=== PATIENT | male | born 1940 | race Caucasian/White ===

== ENCOUNTER 2017-01-08 23:24 | Observation (INO) | payer BC ==
[~2017-01-08] VITALS: Ht 175.3 cm; Wt 90.9 kg
[2017-01-08 23:31] VITALS: Ht 175.3 cm; Wt 90.9 kg
--- NOTE | 2017-01-08 23:41 | ERA ---
ER Documentation Chief Complaint Date/Time DATE: 01/08/17 TIME: 23:37 Chief Complaint BIBA RA 81, s/p fall, left head lac,hx CVA HPI Patient is a 76-year-old male who presents with sudden onset, constant, moderate confusion for an unknown period of time. The patient had a fall at home with trauma to his head, and called 911. He was found on the floor with a laceration to his scalp. The patient was confused as to what happened or how long he had been on the floor for. The patient denies loss of consciousness, and states that he remembers falling, but cannot state why he fell. The patient states that he was in a hospital this morning for unknown reason. He does not recall which hospital. He states that he recently had a stroke, but cannot state what kind of deficit he had, where he was treated, or how long ago this occurred. He currently complains of headache and dizziness. He denies chest pain, shortness of breath, vomiting, fever. ROS All systems reviewed and are negative except as per history of present illness. Medications Home Meds Unable to Obtain Active Prescriptions or Reported Meds Allergies Allergies: Coded Allergies: No Known Allergy (Unverified , 01/08/17) PMhx/Soc Past medical history: Diabetes, hypertension, CVA Past surgical history: None Social history: Denies tobacco or alcohol. FmHx Family History: No coronary disease, No diabetes Physical Exam Vitals Vital Signs Date Time Temp Pulse Resp B/P Pulse Ox O2 Delivery O2 Flow Rate FiO2 01/08/17 23:31 99.2 86 18 106/62 95 Physical Exam Const: ` Alert, no acute distress Head: 9 cm right parietal scalp laceration Eyes: Normal Conjunctiva, no pallor, no icterus, no nystagmus ENT: Normal External Ears, Nose and Mouth. No facial bony tenderness. Neck: Full range of motion..~ No meningismus. No midline tenderness. Resp: Clear to auscultation bilaterally, no wheezes, no rales Cardio: Regular rate and rhythm, no murmurs Abd: Soft, non tender, non distended. No rebound, no guarding Skin: No petechiae or rashes Back: No midline or flank tenderness Ext: No cyanosis, or edema Neur: Awake and alert, disoriented to time and place, cranial nerves II through XII intact bilaterally, strength and sensation full in 4 extremities. No pronator drift, no dysmetria Psych: Normal Mood and Affect Result Diagram: 01/08/17 2352 01/08/17 2352 Results 24 hrs Laboratory Tests Test 01/08/17 23:52 White Blood Count 9.310^3/ul Red Blood Count 4.5410^6/ul Hemoglobin 13.7g/dl Hematocrit 40.8% Mean Corpuscular Volume 89.9fl Mean Corpuscular Hemoglobin 30.2pg Mean Corpuscular Hemoglobin Concent 33.6g/dl Red Cell Distribution Width 12.3% Platelet Count 05755^3/UL Mean Platelet Volume 10.7fl Neutrophils % 72.4% Lymphocytes % 16.6% Monocytes % 8.7% Eosinophils % 1.5% Basophils % 0.3% Nucleated Red Blood Cells % 0.0/100WBC Neutrophils # 6.810^3/ul Lymphocytes # 1.610^3/ul Monocytes # 0.810^3/ul Eosinophils # 0.110^3/ul Basophils # 0.010^3/ul Nucleated Red Blood Cells # 0.010^3/ul Prothrombin Time 12.7Sec Prothrombin Time Ratio 1.0 INR International Normalized Ratio 0.95 Activated Partial Thromboplast Time 24.8Sec Sodium Level 143mmol/L Potassium Level 4.0mmol/L Chloride Level 109mmol/L Carbon Dioxide Level 22mmol/L Anion Gap 16 Blood Urea Nitrogen 34mg/dl Creatinine 1.34mg/dl Glucose Level 126mg/dl Calcium Level 10.0mg/dl Total Bilirubin 0.3mg/dl Direct Bilirubin 0.00mg/dl Indirect Bilirubin 0.3mg/dl Aspartate Amino Transf (AST/SGOT) 26IU/L Alanine Aminotransferase (ALT/SGPT) 32IU/L Alkaline Phosphatase 38IU/L Ammonia < 9umol/l Troponin I < 0.012ng/ml Total Protein 6.6g/dl Albumin 4.6g/dl Globulin 2.00g/dl Albumin/Globulin Ratio 2.30 Ethyl Alcohol Level < 10.0mg/dl Current Medications Medications (Trade) Dose Ordered Sig/See Route PRN Reason Start Time Stop Time Status Last Admin Dose Admin Diphtheria/ Tetanus/Acell Pertussis (Adacel) 0.5 ml ONCE ONCE IM* 01/09/17 00:00 01/09/17 00:01 DC 01/09/17 00:27 Lidocaine/ Epinephrine 20 ml 20 ml ONCE ONCE INJ 01/09/17 02:00 01/09/17 02:01 DC Lidocaine HCl/ Dextrose 500 ml @ 15 mls/hr Q24H IV 01/09/17 02:00 Sodium Chloride (NS) 1,000 ml @ 60 mls/hr [id number] IV 01/09/17 02:11 01/09/17 06:06 Procedures/MDM EKG read by me: Time 0020, rate 75 Rhythm: Normal sinus [place]: Normal Intervals: Normal ST-T waves: no ischemic changes Ectopy: No Q-waves: No Impression: No evidence of ischemia or arrhythmia Laceration Repair by me: Anesthesia: 1% lidocaine locally Location: Right parietal scalp Foreign body: None detected after copious irrigation and exploration Technique: Kostas Complexity: No subcutaneous sutures/mucosal repair/edge excision Post Closure Length: 9 cm Patient's bleeding was easily controlled in the department and there is no indication of anemia. No evidence of foreign body. Patient is appropriate for outpatient follow up. 48 hour wound check. Scar minimization instructions given. MDM: Patient is a 76-year-old male who had a fall at home of unknown mechanism. He sustained a scalp laceration which was repaired with kostas. The patient is disoriented in the ER, but has no focal sensory or motor deficit. The patient reports that he has been in the hospital for the last 3 days, but cannot state which hospital he was in. He states that he was diagnosed with a stroke. Head CT shows an old basal ganglia infarct, but no acute changes. The onset of the patient's disorientation is unclear. MRI was ordered to assess for acute or recent stroke, and the patient will be admitted for further workup. It would be helpful to obtain outside hospital records to find out more about the patient's recent medical history, but I cannot do so at this time due to inability of the patient to provide the name of the hospital. The patient also states that he has no friends or family that may be aware of his recent history. He does state that he has a trial lawyer who could provide this information. The patient did not want to be admitted to the hospital and requested to be discharged home. I assessed him for capacity, and he did not have capacity for medical decision making or self-care. The patient was not able to urinate, and refused Valencia catheter. He also refused aspirin. UA and urine tox screen were ordered, and can be completed once the patient urinates. Departure Diagnosis: Primary Impression: Altered mental status Qualified Code: R41.0 - Disorientation Additional Impression: Scalp laceration Qualified Code: S01.01XA - Scalp laceration, initial encounter Condition: Stable SUKHDEV KOEHLER MD Jan 08, 2017 23:41
[2017-01-09] MEDS ORDERED: DIPHTH/TET/ACEL PERTUSS (ADULT) 0.5 ML VIAL IM* ONE
[2017-01-09 00:22] LABS: ADD SCAN DIFF NO; BASOPHILS % 0.3 % (0.0-2.0); EOSINOPHILS # 0.1 10^3/ul (0.0-0.5); EOSINOPHILS % 1.5 % (0.0-7.0); HEMATOCRIT 40.8 % (42.0-52.0); HEMOGLOBIN 13.7 g/dl (14.0-18.0); LYMPHOCYTES # 1.6 10^3/ul (0.8-2.9); LYMPHOCYTES % 16.6 % (15.0-51.0); MEAN CORPUSCULAR HEMOGLOBIN 30.2 pg (29.0-33.0); MEAN CORPUSCULAR HGB CONC 33.6 g/dl (32.0-37.0); MEAN CORPUSCULAR VOLUME 89.9 fl (82.0-101.0); MEAN PLATELET VOLUME 10.7 fl (7.4-10.4); MONOCYTE # 0.8 10^3/ul (0.3-0.9); MONOCYTES % 8.7 % (0.0-11.0); NEUTROPHIL # 6.8 10^3/ul (1.6-7.5); NEUTROPHILS % 72.4 % (39.0-77.0); PLATELET COUNT 209 10^3/UL (140-415); RED BLOOD COUNT 4.54 10^6/ul (4.70-6.10); RED CELL DISTRIBUTION WIDTH 12.3 % (11.5-14.5); WHITE BLOOD COUNT 9.3 10^3/ul (4.8-10.8)
[2017-01-09 00:41] LABS: ALANINE AMINOTRANSFERASE 32 IU/L (13-69); ALBUMIN 4.6 g/dl (3.3-4.9); ALKALINE PHOSPHATASE 38 IU/L (42-121); ANION GAP 16 (8-16); ASPARTATE AMINO TRANSFERASE 26 IU/L (15-46); BILIRUBIN,INDIRECT 0.3 mg/dl (0-1.1); BILIRUBIN,TOTAL 0.3 mg/dl (0.2-1.3); BLOOD UREA NITROGEN 34 mg/dl (7-20); CARBON DIOXIDE 22 mmol/L (21-31); CHLORIDE 109 mmol/L (97-110); CREATININE 1.34 mg/dl (0.61-1.24); GLUCOSE 126 mg/dl (70-220); SODIUM 143 mmol/L (135-144); TOTAL PROTEIN 6.6 g/dl (6.1-8.1)
[2017-01-09 00:43] LABS: ETHANOL < 10.0 mg/dl
[2017-01-09 00:45] LABS: INR 0.95; PROTIME 12.7 Sec (12.2-14.2)
[2017-01-09 00:46] LABS: PARTIAL THROMBOPLASTIN TIME 24.8 Sec (25.0-35.0)
--- NOTE | 2017-01-09 00:46 | RADRPT ---
PROCEDURE: XR Chest. CLINICAL INDICATION: Altered mental status TECHNIQUE: Single AP portable chest COMPARISON: None. FINDINGS: The cardiomediastinal silhouette is within normal limits of size. Atherosclerotic calcification of t he aorta. The lungs are clear without pleural effusion or focal consolidation. No pneumothorax. The osseous structures and soft tissues are unremarkable. IMPRESSION: 1. No evidence for active cardiopulmonary disease. RPTAT:AAJJ Roly Turner Physician Date Time Electronically viewed and signed by Roly Turner Physician on 01/09/2017 00:46 BRENNON/
--- NOTE | 2017-01-09 00:49 | RADRPT ---
PROCEDURE: CT Brain without contrast. CLINICAL INDICATION: Head trauma and headache. History of CVA. TECHNIQUE: A multiplanar CT of the brain was performed on a CT scanner utilizing axial imaging fro m the skull base through the vertex without IV contrast. The CTDIvol is 43.16 mGy and the DLP is 72 0.23 mGycm. One or more of the following dose reduction techniques were utilized: Automated expos ure control, adjustment of the mA and/or kV according to patient size, use of iterative reconstructi on technique. COMPARISON: None FINDINGS: No evidence of intracranial hemorrhage or abnormal extra-axial fluid collection. Mild periventricular and subcortical white matter low attenuation compatible with sequelae of chroni c microvascular ischemic injury. Remote lacunar infarct in the left basal ganglia. The brain parenc hyma is otherwise normal attenuation and morphology with preservation of araiza white differentiation. The ventricles and subarachnoid spaces are prominent compatible with mild age appropriate volume lo ss. Opacification of the right maxillary sinus compatible with chronic inflammatory change. The basal cisterns, posterior fossa contents, brainstem, craniocervical junction, orbits, pituitary axis, paranasal sinuses, mastoid air cells, and calvarium are unremarkable. IMPRESSION: 1. No intracranial hemorrhage or acute intracranial abnormality. 2. Mild chronic microvascular ischemic changes and age related volume loss. 3. Remote left basal ganglia lacunar infarct. 4. Early ischemic injury may be occult to CT imaging and diffusion weighted MRI may be considered a s clinically warranted. RPTAT:AAJJ Physician Jennifer Date Time Electronically viewed and signed by Physician Jennifer on 01/09/2017 00:49 BRENNON/
[2017-01-09 00:52] LABS: TROPONIN-I < 0.012 ng/ml (0.00-0.12)
[2017-01-09] MEDS ORDERED: LIDOCAINE 2 GM/D5W 500 ML IV SCH (02:00)
[2017-01-09] MEDS ORDERED: LIDOCAINE 2%/EPI MPF (SDV) 20 ML VIAL INJ ONE (02:00)
[2017-01-09] MEDS ORDERED: ONDANSETRON 4 MG INJ IV PRN ×2 (02:30)
[2017-01-09] MEDS ORDERED: NACL 0.9% 3 ML SYG IV SCH (02:30)
[2017-01-09] MEDS ORDERED: ACETAMINOPHEN 325 MG TAB PO PRN ×2 (02:30)
[2017-01-09] MEDS: SOD CHLORIDE 0.9% 1,000 ML IV SCH ×2 (03:22→06:06)
[2017-01-09] MEDS ORDERED: ASPIRIN 81 MG TAB PO ONE (03:30)
--- NOTE | 2017-01-09 05:32 | HP ---
Date/Time of Note Date/Time of Note DATE: 01/09/17 TIME: 05:29 Assessment/Plan VTE Prophylaxis VTE Prophylaxis Intervention: SCD's Assessment/Plan Chief Complaint/Hosp Course This is a 76-year-old male being admitted to the [facility] floor for: #1 altered mental status: Neurologic versus metabolic. At the current time patient does not recall certain events over the last couple of days as well as not recalling where he was hospitalized. Patient does apparently have a history of a stroke. CT scan did show remote left basal ganglia lacunar infarct , Early ischemic injury may be occult to CT imaging and diffusion weighted MRI was recommended. MRI of the brain was will be ordered. Neuro checks q4. Will order lab workup vitamin B12 and folate, HIV and RPR, urine drug screen, as well as bilateral carotid Dopplers. PT evaluation. Will also order an echocardiogram. We will also consult neurology. #2 diabetes: Patient denies that he uses any insulin. Will order hemoglobin A1c. Patient on diabetic diet. #3 hypertension: We will continue to monitor, we will have any records of his home medication at this time we will try to obtain records. #4 history of CVA: Again will have any records at this time will attempt to obtain records from any previous hospital admissions at other facilities. #5 DVT and GI prophylaxis: SCDs, Protonix Further treatment strategy will be implemented as per the clinical course. We will try to obtain medical records from outside facilities if possible and try to contact any family members to help us further find any of his past medical history. And help find his medication list. Problems: HPI/ROS Admit Date/Time Admit Date/Time Jan 09, 2017 at 02:11 Hx of Present Illness chief complaint: fall This is a 76-year-old male who presents with sudden onset, constant, moderate confusion for an unknown period of time. The patient had a fall at home with trauma to his head, and called 911. He was found on the floor with a laceration to his scalp. The patient was confused as to what happened or how long he had been on the floor for. The patient denies loss of consciousness, and states that he remembers falling, but cannot state why he fell. The patient states that he was in a hospital yesterday morning for an unknown reason. He does not recall which hospital. He states that he recently had a stroke, but cannot state what kind of deficit he had, where he was treated, or how long ago this occurred. H He denies chest pain, shortness of breath, vomiting, fever. While in the ER he complained of headache and dizziness however upon my examination now it has resolved. Patient is slow to answer questions. He does appear to be forgetful. allergies: nkda meds: unknown ROS Const: As per HPI Eyes : No pain discharge or redness or change in visual acuity ENT: No pain, sore throat, congestion, congestion, dysphagia or discharge Respiratory: No shortness of breath, cough, sputum, wheezing, or pleuritic pain Cardiovascular: No chest pain, palpitation, PND, or edema GI : no change in appetite, abdominal pain, nausea, vomiting, diarrhea, constipation, or change in the color his stool Genitourinary: No dysuria, hematuria, flank pain , discharge or CVA tenderness Musculoskeletal: As per HPI Skin: No rash, bruising or hives Neuro: As per HPI Endocrine: No polyuria, polydipsia, temperature intolerance Psych: No hallucination, depression, anxiety or suicidal ideation PMH/Family/Social Past Medical History diabetes, hta, cva Past Surgical History Past Surgical Hx: no surgical history Family History Significant Family History: no pertinent family hx Social History Alcohol Use: none Smoking Status: Never smoker Exam/Review of Systems Vital Signs Vitals Vital Signs Date Time Temp Pulse Resp B/P Pulse Ox O2 Delivery O2 Flow Rate FiO2 01/09/17 04:22 87 17 169/85 98 Room Air 01/08/17 23:31 99.2 Exam Exam General: Patient is well-developed well-nourished male laying in bed in no acute distress HEENT: Right parietal scalp laceration status post repair, EOMI Neck: Supple with full range of motion. No rigidity or meningismus Chest: Nontender Lungs: Clear to auscultation bilaterally no crackles rales or wheezing Heart: Normal S1-S2, Regular rhythm and rate. Abdomen: Soft , nontender, nondistended , bowel sounds are present. No guarding no rebound tenderness , No masses or organomegaly. No costovertebral temporal angle mass Extremities: Normal to inspection, no edema no cyanosis Neurologic: Patient is alert and oriented 2, one answering questions it appears that the patient has to pause and think for a minute even for easy questions, he does appear to be forgetful regarding certain things as well such as how he fell. He is able to follow commands appropriately. Cranial nerves II through XII intact, no focal deficits noted. Skin: Mild bruising and cuts of bilateral upper extremity Additional Comments PROCEDURE: CT Brain without contrast. CLINICAL INDICATION: Head trauma and headache. History of CVA. TECHNIQUE: A multiplanar CT of the brain was performed on a CT scanner utilizing axial imaging from the skull base through the vertex without IV contrast. The CTDIvol is 43.16 mGy and the DLP is 720.23 mGycm. One or more of the following dose reduction techniques were utilized: Automated exposure control, adjustment of the mA and/or kV according to patient size, use of iterative reconstruction technique. COMPARISON: None FINDINGS: No evidence of intracranial hemorrhage or abnormal extra-axial fluid collection. Mild periventricular and subcortical white matter low attenuation compatible with sequelae of chronic microvascular ischemic injury. Remote lacunar infarct in the left basal ganglia. The brain parenchyma is otherwise normal attenuation and morphology with preservation of araiza white differentiation. The ventricles and subarachnoid spaces are prominent compatible with mild age appropriate volume loss. Opacification of the right maxillary sinus compatible with chronic inflammatory change. The basal cisterns, posterior fossa contents, brainstem, craniocervical junction , orbits, pituitary axis, paranasal sinuses, mastoid air cells, and calvarium are unremarkable. IMPRESSION: 1. No intracranial hemorrhage or acute intracranial abnormality. 2. Mild chronic microvascular ischemic changes and age related volume loss. 3. Remote left basal ganglia lacunar infarct. 4. Early ischemic injury may be occult to CT imaging and diffusion weighted MRI may be considered as clinically warranted. RPTAT:AAJJ Physician Jennifer Date Time Electronically viewed and signed by Physician Jennifer on 01/09/2017 00:49 PROCEDURE: XR Chest. CLINICAL INDICATION: Altered mental status TECHNIQUE: Single AP portable chest COMPARISON: None. FINDINGS: The cardiomediastinal silhouette is within normal limits of size. Atherosclerotic calcification of the aorta. The lungs are clear without pleural effusion or focal consolidation. No pneumothorax. The osseous structures and soft tissues are unremarkable. IMPRESSION: 1. No evidence for active cardiopulmonary disease. RPTAT:AAJJ Roly Turner Physician Date Time Electronically viewed and signed by Roly Turner Physician on 01/09/2017 00:46 BRENNON/ Labs Result Diagram: 01/08/17 2352 01/08/17 2352 Medications Medications Current Medications Lidocaine HCl/ Dextrose 500 ml @ 15 mls/hr Q24H IV ; Start 01/09/17 at 02:00 Sodium Chloride (NS) 1,000 ml @ 60 mls/hr [id number] IV Last administered on 01/09t 03:22; Admin Dose 60 MLS/HR; Start 01/09/17 at 02:11 Ondansetron HCl (Zofran Inj) 4 mg Q6H PRN IV NAUSEA AND/OR VOMITING; Start at 02:30 Acetaminophen (Tylenol Tab) 650 mg Q6H PRN PO PAIN LEVEL 1-3 OR FEVER; Start at 02:30 Pantoprazole (Protonix Iv) 40 mg DAILY@06 IV ; Start 01/09/17 at 06:00 LAUREL BURT Jan 09, 2017 05:32
[2017-01-09] MEDS: PANTOPRAZOLE 40 MG INJ IV SCH (06:00)
[2017-01-09] MEDS ORDERED: LORAZEPAM 2 MG INJ IV ONE (07:30)
[2017-01-09 07:47] LABS: TROPONIN-I 0.018 ng/ml (0.00-0.12)
[2017-01-09 07:52] LABS: CK-MB 1.91 ng/ml (0.0-2.4)
[2017-01-09 07:56] VITALS: BP 150/75; RESP 18
[2017-01-09 08:42] LABS: FOLATE 9.4 ng/ml (2.8-20.0)
--- NOTE | 2017-01-09 09:57 | RADRPT ---
PROCEDURE: MR Brain without contrast. CLINICAL INDICATION: Altered mental status TECHNIQUE: An MRI of the brain was performed on a 1.5 daron scanner utilizing the following sequen doris: Sagittal T1 weighted, axial T2 weighted, axial FLAIR, coronal GRE, and axial diffusion weighted with ADC mapping. COMPARISON: 01/09/2017 CT brain. FINDINGS: Focus of restricted diffusion in the right posterior central gyrus of the right parietal lobe compat ible with acute / early subacute ischemic infarction. There is no evidence of intracranial hemorrha ge, mass effect, or midline shift. No extra-axial fluid collections are seen. No hypointense signal abnormalities are seen on the GRE images to suggest the presence of blood degr adation products. Scattered nonspecific T2 signal hyperintensity foci in the subcortical and periven tricular white matter compatible with sequelae of minimal chronic microvascular ischemic injury. Rem ote lacunar infarct in the right cerebellar hemisphere and left and left basal ganglia. The brain parenchyma is otherwise normal in signal intensity and morphology with preservation of gra y white differentiation . The ventricles and subarachnoid spaces are prominent moderate central cer ebral and cerebellar volume loss. Opacification of the right maxillary sinus. The posterior fossa contents, brainstem, seventh - eighth cranial nerve complexes, pituitary axis, o rbits, paranasal sinuses, and mastoid air cells are unremarkable. Normal flow voids are visible in the proximal intracranial arteries and dural sinuses, indicating pa tency. IMPRESSION: 1. Restricted diffusion compatible with acute / early subacute ischemic infarct in the right parieta l lobe. No evidence of surrounding edema, mass effect, or shift. No hemorrhagic transformation. 2. Mild chronic microvascular ischemic changes. Moderate central cerebral and cerebellar volume los s. 3. Remote lacunar infarcts in the right cerebellar hemisphere and left basal ganglia. RPTAT:AAJJ Physician Jennifer Date Time Electronically viewed and signed by Physician Jennifer on 01/09/2017 09:57 BRENNON/
--- NOTE | 2017-01-09 10:34 | RADRPT ---
PROCEDURE: US Carotids. CLINICAL INDICATION: altered mental status, confusion TECHNIQUE: Multiple sonographic of the carotid bifurcation region and vertebral arteries were obta ined utilizing araiza scale, duplex and color-flow imaging. The images were reviewed on a PACS worksta tion. COMPARISON: None FINDINGS: Evaluation of the right carotid bifurcation region reveals calcific atherosclerotic disease. Evaluation of the left carotid bifurcation region reveals calcific atherosclerotic disease. There is antegrade flow within the vertebral arteries bilaterally. RIGHT CAROTID MEASUREMENTS: Common Carotid Suwwwb963.8 (cm/sec) Internal Carotid Artery - pxybndhi17.6 (cm/sec) Internal Carotid Artery - mid50.2 (cm/sec) Internal Carotid Artery - eiqodt42.4 (cm/sec) Internal Carotid/Common Carotid0.82 LEFT CAROTID MEASUREMENTS: Common Carotid Artery 72.6 (cm/sec) Internal Carotid Artery - proximal 51.6 (cm/sec) Internal Carotid Artery - mid 59.7(cm/sec) Internal Carotid Artery - distal 59.1(cm/sec) Internal Carotid/Common Carotid 0.9 IMPRESSION: 1. No evidence for hemodynamically significant carotid artery stenosis - validated velocity measure ments with angiographic measurements, velocity criteria are extrapolated from diameter data as defin ed by the Society of Radiologists in Ultrasound Consensus Conference Radiology 2003; 229; 340 - 346. This study does indirectly reference the measurement of the distal ICA diameter as the denominator for stenosis measurement. 2. Normal antegrade flow in the vertebral arteries bilaterally. RPTAT: HJES .Sumanth Smart MD, MD Date Time Electronically viewed and signed by .Sumanth Smart MD, MD on 01/09/2017 10:34 .S/
[2017-01-09] MEDS: METOPROLOL 25 MG TAB PO SCH ×2 (13:45→21:36)
[2017-01-09 15:17] LABS: TROPONIN-I 0.019 ng/ml (0.00-0.12)
[2017-01-09 15:45] LABS: CK-MB 1.07 ng/ml (0.0-2.4)
[2017-01-09 19:12] VITALS: BP 159/76; RESP 18
--- NOTE | 2017-01-09 20:46 | QN ---
Documentation Comment Patient seen and evaluated. Spoke with patient himself, spoke with patient's power of district attorney and friend, and also spoke with [facility] physician who took care of the patient [facility] up until yesterday. Apparently patient was seen and managed at [facility] for subacute stroke, and he had refused half-way placement at that time and chosen to return to his own home with home health therapy. However on the night of his discharge is when he had a fall was brought to our emergency room by paramedics. His power of district attorney and friend notes that the patient's memory has been failing, and is concerned that his house is not safe for him anymore. Patient is now amenable to half-way placement. Patient is oriented to self, place and person but does have tangential and confused speech intermittently. For instance he says [employer] officers have moved into his home, and I have verified with his power of district attorney that this is not true. 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 He may need board and care versus assisted living afterwards. SANJU DEVRIES. Jan 09, 2017 18:51
[2017-01-10] MEDS: SOD CHLORIDE 0.9% 1,000 ML IV SCH (04:47)
[2017-01-10] MEDS: PANTOPRAZOLE 40 MG INJ IV SCH (05:34)
[2017-01-10 06:34] LABS: ADD SCAN DIFF NO
[2017-01-10 06:52] LABS: BASOPHILS % 0.5 % (0.0-2.0); EOSINOPHILS # 0.1 10^3/ul (0.0-0.5); EOSINOPHILS % 2.1 % (0.0-7.0); HEMATOCRIT 37.6 % (42.0-52.0); HEMOGLOBIN 12.6 g/dl (14.0-18.0); LYMPHOCYTES # 1.6 10^3/ul (0.8-2.9); LYMPHOCYTES % 27.9 % (15.0-51.0); MEAN CORPUSCULAR HEMOGLOBIN 30.2 pg (29.0-33.0); MEAN CORPUSCULAR HGB CONC 33.5 g/dl (32.0-37.0); MEAN CORPUSCULAR VOLUME 90.2 fl (82.0-101.0); MEAN PLATELET VOLUME 11.1 fl (7.4-10.4); MONOCYTE # 0.6 10^3/ul (0.3-0.9); MONOCYTES % 9.7 % (0.0-11.0); NEUTROPHIL # 3.5 10^3/ul (1.6-7.5); NEUTROPHILS % 59.3 % (39.0-77.0); PLATELET COUNT 193 10^3/UL (140-415); RED BLOOD COUNT 4.17 10^6/ul (4.70-6.10); WHITE BLOOD COUNT 5.9 10^3/ul (4.8-10.8)
[2017-01-10 06:58] LABS: ALBUMIN 4.3 g/dl (3.3-4.9); ALBUMIN/GLOBULIN RATIO 1.95; BILIRUBIN,INDIRECT 0.5 mg/dl (0-1.1); BILIRUBIN,TOTAL 0.5 mg/dl (0.2-1.3); CALCIUM 8.9 mg/dl (8.4-10.2); CREATININE 1.06 mg/dl (0.61-1.24); TOTAL PROTEIN 6.5 g/dl (6.1-8.1)
[2017-01-10 09:22] VITALS: BP 168/77; RESP 18
[2017-01-10] MEDS: METOPROLOL 25 MG TAB PO SCH (09:24)
--- NOTE | 2017-01-10 10:23 | PN ---
Date/Time of Note Date/Time of Note DATE: 01/10/17 TIME: 10:17 Assessment/Plan VTE Prophylaxis VTE Prophylaxis Intervention: LMWH Lines/Catheters IV Catheter Type (from [facility]): Saline Lock Urinary Cath still in place: No Assessment/Plan Assessment/Plan 76 yo M with 1. Subacute stroke with history of multiple strokes in the past 2. Multi-infarct dementia 3. Status post fall with laceration to head 4. Mild rhabdomyolysis Plan: Patient was recently discharged from [facility] after being diagnosed with stroke and worked up. He had however refused usp placement at that time, so he was discharged home with home health when he went and sustained a fall. He was brought here by paramedics. I have spoken in detail with patient's power of senior trial attorney and friend, I also spoke with the patient. Will continue inpatient supportive care and rehab at this time; however the patient is no longer able to reside by himself. He will need residential facility placement. Case management working on this. Consider low dose seroquel if patient becomes agitated. Wean sitter Subjective 24 Hr Interval Summary Free Text/Dictation patient seen no new issues Nursing reports no acute overnight events. Exam/Review of Systems Vital Signs Vitals Vital Signs Date Time Temp Pulse Resp B/P Pulse Ox O2 Delivery O2 Flow Rate FiO2 01/10/17 09:22 97.6 79 18 168/77 97 01/09/17 04:22 Room Air Intake and Output 01/09/17 01/09/17 01/10/17 15:00 23:00 07:00 Intake Total 450 ml 1070 ml Balance 450 ml 1070 ml Exam General: Patient is well-developed well-nourished male laying in bed in no acute distress HEENT: Right parietal scalp laceration status post repair with kostas. EOMI Neck: Supple with full range of motion. No rigidity or meningismus Chest: Nontender Lungs: Clear to auscultation bilaterally no crackles rales or wheezing Heart: Normal S1-S2, Regular rhythm and rate. Abdomen: Soft , nontender, nondistended , bowel sounds are present. No guarding no rebound tenderness , No masses or organomegaly. No costovertebral temporal angle mass Extremities: Normal to inspection, no edema no cyanosis Neurologic: Patient is alert and oriented 2, one answering questions it appears that the patient has to pause and think for a minute even for easy questions, he does appear to be forgetful regarding certain things as well such as how he fell. He is able to follow commands appropriately. No gross focal deficits noted. Skin: Mild bruising and cuts of bilateral upper extremity Results Result Diagram: 01/10/17 0442 01/10/17 0442 Results 24 hrs Laboratory Tests Test 01/09/17 13:50 01/10/17 04:42 Creatine Kinase 259 H Creatine Kinase Index 0.4 Creatinine Kinase MB (Mass) 1.07 Troponin I 0.019 White Blood Count 5.9 # Red Blood Count 4.17 L Hemoglobin 12.6 L Hematocrit 37.6 L Mean Corpuscular Volume 90.2 Mean Corpuscular Hemoglobin 30.2 Mean Corpuscular Hemoglobin Concent 33.5 Red Cell Distribution Width 12.0 Platelet Count 193 Mean Platelet Volume 11.1 H Neutrophils % 59.3 Lymphocytes % 27.9 Monocytes % 9.7 Eosinophils % 2.1 Basophils % 0.5 Nucleated Red Blood Cells % 0.0 Neutrophils # 3.5 Lymphocytes # 1.6 Monocytes # 0.6 Eosinophils # 0.1 Basophils # 0.0 Nucleated Red Blood Cells # 0.0 Sodium Level 139 Potassium Level 4.0 Chloride Level 110 Carbon Dioxide Level 23 Anion Gap 10 # Blood Urea Nitrogen 16 # Creatinine 1.06 Glucose Level 111 Calcium Level 8.9 Total Bilirubin 0.5 Direct Bilirubin 0.00 Indirect Bilirubin 0.5 Aspartate Amino Transf (AST/SGOT) 29 Alanine Aminotransferase (ALT/SGPT) 29 Alkaline Phosphatase 34 L Total Protein 6.5 Albumin 4.3 Globulin 2.20 Albumin/Globulin Ratio 1.95 Medications Medications Current Medications Sodium Chloride (NS) 1,000 ml @ 60 mls/hr [id number] IV Last administered on 01/10 04:47; Admin Dose 60 MLS/HR; Start 01/09/17 at 02:11 Ondansetron HCl (Zofran Inj) 4 mg Q6H PRN IV NAUSEA AND/OR VOMITING; Start at 02:30 Acetaminophen (Tylenol Tab) 650 mg Q6H PRN PO PAIN LEVEL 1-3 OR FEVER; Start at 02:30 Pantoprazole (Protonix Iv) 40 mg DAILY@06 IV Last administered on 01/10/17 05: 34; Admin Dose 40 MG; Start 01/09/17 at 06:00 Metoprolol Tartrate (Lopressor) 25 mg BID PO Last administered on 01/10/17t 09: 24; Admin Dose 25 MG; Start 01/09/17 at 13:00 SANJU DEVRIES Jan 10, 2017 10:23
--- NOTE | 2017-01-10 12:14 | PDOCDIS ---
Discharge Instructions DIAGNOSIS Discharge Diagnosis: Sub acute stroke , fall with scalp laceration CONDITION Patient Condition: Stable HOME CARE INSTRUCTIONS: Special Diet: 1800 MARY ACTIVITY: Activity Restrictions: Slowly Increase Activity Rest between Activity Activity Restrictions Comment: Fall precautions OTHER ORDERS: Other Orders: remove head kostas in 6 days 01/16/17 SANJU DEVRIES Jan 10, 2017 12:14
[2017-01-10 13:21] VITALS: BP 142/68; PULSE 73; RESP 18
--- NOTE | 2017-01-10 19:07 | RADRPT ---
Echocardiogram Report Patient Name: VLADIMIR PISANO Gender: Male Date: 1940 Study Date: 09-Jan-2017 Aquarist: [facility] Location: 631 Ref. Physician: LAUREL BURT Quality: Adequate Procedures: Transthoracic echocardiogram with complete 2D, M-Mode, and doppler examination. Indications: Altered Mental Status, Fall, Hx of CVA. 2D/M Mode Doppler Measurement Value Normal Ranges Measurement Value Normal Ranges LVIDd 2D 4.7 3.5 - 5.6 cm AV Peak Chirag 1.3 m/sec LVIDs 2D 3.5 2.1 - 4.1 cm AV Peak PG 6.3 mmHg LVPWd 2D 1.5 0.6 - 1.1 cm LVOT Peak Chirag 1.0 m/sec IVSd 2D 1.5 0.6 - 1.1 cm LVOT Peak PG 3.8 mmHg AoR Diam 2D 2.5 2.0 - 3.7 cm MV E Peak Chirag 0.7 m/sec EDV 2D 99.9 cm3 MV A Peak Chirag 0.9 m/sec ESV 2D 44.0 cm3 MV E/A 0.8 LA Dimen 2D 4.4 2.3 - 4.0 cm MV Decel Time 199 msec MV Decel Davie 3 MV E/A 0.8 Findings Left Ventricle: Hyperdynamic left ventricular systolic function. Normal left ventricular cavity size. Moderate concentric left ventricular hypertrophy. Ejection fraction is visually estimated at 70 %. Tissue Doppler/Mitral Doppler indices are consistent with impaired relaxation (Stage I diastolic dysfunction). Right Ventricle: Normal right ventricular size. Normal right ventricular systolic function. Left Atrium: There is mild enlargement of left atrium. Right Atrium: The right atrium is normal in size. Mitral Valve: Mild mitral leaflet calcification. Trace mitral regurgitation. Aortic Valve: Normal appearance of the aortic valve. No significant aortic stenosis or insufficiency. Tricuspid Valve: Normal appearance and function of the tricuspid valve with trace physiologic regurgitation. Pulmonic Valve: Pulmonic valve not well visualized. There is trace pulmonic regurgitation. Pericardium: Normal pericardium with no significant pericardial effusion. Aorta: Normal aortic root. IVC: Normal size and normal respiratory collapse consistent with normal right atrial pressure. Conclusions Hyperdynamic left ventricular systolic function. Normal left ventricular cavity size. Moderate concentric left ventricular hypertrophy. Ejection fraction is visually estimated at 70 %. Tissue Doppler/Mitral Doppler indices are consistent with impaired relaxation (Stage I diastolic dysfunction). Normal right ventricular size. Normal right ventricular systolic function. There is mild enlargement of left atrium. The right atrium is normal in size. No significant valvular stenosis or regurgitation seen. Normal pericardium with no significant pericardial effusion. Electronically Signed By: Vladimir Roberts 10-Jan-2017 19:06:58 -0700 Patient Name: VLADIMIR PISANO Study Date: 09-Jan-[id number]
--- NOTE | 2017-01-10 19:09 | DS ---
Date/Time of Note Date/Time of Note DATE: 01/10/17 TIME: 19:01 Discharge Summary Admission/Discharge Info Admit Date/Time Jan 09, 2017 at 02:11 Discharge Date/Time Jan 10, 2017 at 15:00 Final Diagnosis 76 yo M with 1. Subacute stroke with history of multiple strokes in the past 2. Multi-infarct dementia 3. Status post fall with laceration to head 4. Mild rhabdomyolysis. . Patient Condition: Stable Hx of Present Illness Chief complaint: fall This is a 76-year-old male who presents with sudden onset, constant, moderate confusion for an unknown period of time. The patient had a fall at home with trauma to his head, and called 911. He was found on the floor with a laceration to his scalp. The patient was confused as to what happened or how long he had been on the floor for. The patient denies loss of consciousness, and states that he remembers falling, but cannot state why he fell. The patient states that he was in a hospital yesterday morning for an unknown reason. He does not recall which hospital. He states that he recently had a stroke, but cannot state what kind of deficit he had, where he was treated, or how long ago this occurred. H He denies chest pain, shortness of breath, vomiting, fever. While in the ER he complained of headache and dizziness however upon my examination now it has resolved. Patient is slow to answer questions. He does appear to be forgetful. allergies: nkda meds: unknown . Hospital Course Patient was recently discharged from [facility] after being diagnosed with stroke and worked up. He had however refused long term placement at that time, so he was discharged home with home health when he went and sustained a fall. He was brought here by paramedics. Other than the new laceration, repeat workup did not show any new findings. he was started on Namenda and Aricept for dementia and has been accepted at rehab for further care. In my opinion, patient may no longer be able to recite by himself, however the patient is not quite accepting of this at this time. He is open to short-term rehab. Comorbidities were also aggressively managed as per Med records. Patient at this time has been evaluated and examined in detail and is assessed to be in stable condition and ready for discharge. . Home Meds Unable to Obtain Active Prescriptions or Reported Meds Follow-up Plan Per assigned physician at the rehab facility . Primary Care Provider Jeronimo Meraz Time spent on discharge: > 30 minutes Pending Labs Laboratory Tests Test 01/10/17 04:42 White Blood Count 5.910^3/ul (4.8-10.8) Red Blood Count 4.1710^6/ul (4.70-6.10) Hemoglobin 12.6g/dl (14.0-18.0) Hematocrit 37.6% (42.0-52.0) Mean Corpuscular Volume 90.2fl (82.0-101.0) Mean Corpuscular Hemoglobin 30.2pg (29.0-33.0) Mean Corpuscular Hemoglobin Concent 33.5g/dl (32.0-37.0) Red Cell Distribution Width 12.0% (11.5-14.5) Platelet Count 77062^3/UL (140-415) Mean Platelet Volume 11.1fl (7.4-10.4) Neutrophils % 59.3% (39.0-77.0) Lymphocytes % 27.9% (15.0-51.0) Monocytes % 9.7% (0.0-11.0) Eosinophils % 2.1% (0.0-7.0) Basophils % 0.5% (0.0-2.0) Nucleated Red Blood Cells % 0.0/100WBC (0.0-0.0) Neutrophils # 3.510^3/ul (1.6-7.5) Lymphocytes # 1.610^3/ul (0.8-2.9) Monocytes # 0.610^3/ul (0.3-0.9) Eosinophils # 0.110^3/ul (0.0-0.5) Basophils # 0.010^3/ul (0.0-0.1) Nucleated Red Blood Cells # 0.010^3/ul (0.0-0.0) Sodium Level 139mmol/L (135-144) Potassium Level 4.0mmol/L (3.5-5.1) Chloride Level 110mmol/L (97-110) Carbon Dioxide Level 23mmol/L (21-31) Anion Gap 10 (8-16) Blood Urea Nitrogen 16mg/dl (7-20) Creatinine 1.06mg/dl (0.61-1.24) Glucose Level 111mg/dl (70-220) Calcium Level 8.9mg/dl (8.4-10.2) Total Bilirubin 0.5mg/dl (0.2-1.3) Direct Bilirubin 0.00mg/dl (0.00-0.20) Indirect Bilirubin 0.5mg/dl (0-1.1) Aspartate Amino Transf (AST/SGOT) 29IU/L (15-46) Alanine Aminotransferase (ALT/SGPT) 29IU/L (13-69) Alkaline Phosphatase 34IU/L (42-121) Total Protein 6.5g/dl (6.1-8.1) Albumin 4.3g/dl (3.3-4.9) Globulin 2.20g/dl (1.3-3.2) Albumin/Globulin Ratio 1.95 SANJU DEVRIES Jan 10, 2017 19:09
== END 2017-01-10 15:00 ==
LOC: E/R 23:24 → MS2 01-09 02:11 → UNDOADMOB 01-09 02:11 → UNDODISOB 01-10 15:00
PROVIDERS: ADMIT Family Medicine; ATTEND Family Medicine
DX: I63.9 Cerebral infarction, unspecified (principal); F03.90 Unspecified dementia, unspecified severity, without behavioral disturbance, psychotic disturbance, mood disturbance, and anxiety; S01.01XA Laceration without foreign body of scalp, initial encounter; M62.82 Rhabdomyolysis; I10 Essential (primary) hypertension; E11.9 Type 2 diabetes mellitus without complications; W19.XXXA Unspecified fall, initial encounter; Y93.9 Activity, unspecified; Y99.9 Unspecified external cause status; Y92.009 Unspecified place in unspecified non-institutional (private) residence as the place of occurrence of the external cause; Z23 Encounter for immunization
CPT/HCPCS: 12004; 36415; 70450; 70551; 71010; 80053; 80061; 80306; 82140; 82550; 82553; 82607; 82746; 83036; 83735; 84425; 84443; 84484; 85025; 85610; 85730; 86592; 86703; 90471; 90715; 93005; 93306; 93880; 96374; 96375; 99285; C9113; G0378; J2060; J7030; J2001